=== PATIENT | male | born 1975 | race American Indian/Alaskan Native ===

== ENCOUNTER 2020-04-30 07:22 | Emergency (ER) | payer MEDICAID, OTHER ==
--- NOTE | 2020-04-30 07:30 | EDM.PDOC ---
ED HPI GENERAL MEDICAL PROBLEM - General Chief Complaint: Abdominal Pain Stated Complaint: STOMACH PAIN Time Seen by Provider: 04/30/20 07:29 Source of Information: Reports: Patient, Old Records, RN, RN Notes Reviewed History Limitations: Reports: No Limitations - History of Present Illness INITIAL COMMENTS - FREE TEXT/NARRATIVE: Pt presents to ER from home by POV with c/o epigastric pain for the last two days. He has had gastritis and GERD in the past and states he thinks he also had diagnosis of peptic ulcer disease that his doctor gave him some "stomach acid pills" and they helped. He states the pain has been constant and stayed in the epigastrium for two days, does not radiate to back or anywhere else. He has been nauseated and states he is vomiting but nothing is coming up. He denies any fever, diarrhea, cough, sob, Covid contact or any past Covid testing. Onset: Gradual Duration: Constant Location: Reports: Abdomen Quality: Reports: Burning Severity: Severe Improves with: Reports: None Worsens with: Reports: Eating Associated Symptoms: Reports: No Other Symptoms Upper Abdomen Pain Score (Numeric/FACES): 10 - Related Data Allergies Allergy/AdvReac Type Severity Reaction Status Date / Time No Known Allergies Allergy Verified 04/30/20 07:34 Home Meds: Home Meds Cyclobenzaprine [Flexeril] 5 mg PO Q8H PRN 04/30/20 [History] Gabapentin [Neurontin] 400 mg PO TID 04/30/20 [History] Ibuprofen 400 mg PO Q6H PRN 04/30/20 [History] Past Medical History - Past Health History Medical/Surgical History: Denies Medical/Surgical History Gastrointestinal History: Reports: Gastritis, GERD, PUD - Past Surgical History HEENT Surgical History: Reports: Eye Surgery Social & Family History - Family History Family Medical History: Noncontributory - Caffeine Use Caffeine Use: Reports: Coffee, Energy Drinks, Soda, Tea - Living Situation & Occupation Living situation: Reports: with Family ED ROS GENERAL - Review of Systems Review Of Systems: Comprehensive ROS is negative, except as noted in HPI. ED EXAM, GI/ABD - Physical Exam Exam: See Below Exam Limited By: No Limitations General Appearance: Alert, WD/WN, No Apparent Distress Eyes: Bilateral: Normal Appearance (No scleral icterus) Throat/Mouth: Normal Inspection, Normal Voice, No Airway Compromise Head: Atraumatic, Normocephalic Neck: Normal Inspection, Supple, Non-Tender, Full Range of Motion Respiratory/Chest: No Respiratory Distress, Lungs Clear, Normal Breath Sounds, No Accessory Muscle Use, Chest Non-Tender Cardiovascular: Normal Peripheral Pulses, Regular Rate, Rhythm, No Edema, No Gallop, No JVD, No Murmur, No Rub, Tachycardia GI/Abdominal Exam: Normal Bowel Sounds, Soft, No Organomegaly, No Distention, Tender (Epigastric area). No: Guarding, Rigid, Rebound Back Exam: Normal Inspection Extremities: Normal Inspection Neurological: Alert, Oriented, No Motor/Sensory Deficits Psychiatric: Normal Affect, Normal Mood Skin Exam: Warm, Dry, Intact, Normal Color, No Rash Course - Vital Signs Last Recorded V/S: Last Vital Signs Temp 97.7 F 04/30/20 07:31 Pulse 102 H 04/30/20 07:31 Resp 16 04/30/20 07:31 BP 127/96 H 04/30/20 07:31 Pulse Ox 100 04/30/20 07:31 - Orders/Labs/Meds Orders: Active Orders 24 hr Category Date Time Status Sucralfate [Carafate] Med 04/30/20 08:16 Once 1 gm PO ONETIME ONE Labs: Laboratory Tests 04/30/20 04/30/20 Range/Units 07:48 07:48 WBC 12.2 H (5.0-10.0) 10^3/uL RBC 4.64 (4.6-6.2) 10^6/uL Hgb 14.6 (14.0-18.0) g/dL Hct 43.0 (40.0-54.0) % MCV 92.7 (80-100) fL MCH 31.5 (27.0-34.0) pg MCHC 34.0 (33.0-35.0) g/dL Plt Count 322 (150-450) 10^3/uL Neut % (Auto) 80.9 H (42.2-75.2) % Lymph % (Auto) 10.8 L (20.5-50.1) % Russell % (Auto) 7.6 (2-8) % Eos % (Auto) 0.3 L (1.0-3.0) % Baso % (Auto) 0.4 (0.0-1.0) % Sodium 136 (136-145) mmol/L Potassium 4.6 (3.5-5.1) mmol/L Chloride 99 (98-107) mmol/L Carbon Dioxide 32 (21-32) mmol/L Anion Gap 9.6 (7-13) mEq/L BUN 5 L (7-18) mg/dL Creatinine 0.91 (0.70-1.30) mg/dL Est Cr Clr Drug Dosing 84.31 mL/min Estimated GFR (MDRD) > 60 BUN/Creatinine Ratio 5.5 (No establ ref range) Glucose 109 H (74-99) mg/dL Calcium 8.8 (8.5-10.1) mg/dL Total Bilirubin 0.6 (0.2-1.0) mg/dL AST 12 L (15-37) U/L ALT 14 L (16-63) U/L Alkaline Phosphatase 94 (46-116) U/L Total Protein 7.6 (6.4-8.2) g/dL Albumin 3.4 (3.4-5.0) g/dL Globulin 4.2 Albumin/Globulin Ratio 0.8 Amylase 36 (25-115) U/L Lipase 89 (73-393) U/L Meds: Medications Discontinued Medications Generic Name Dose Route Start Last Admin Trade Name Freq PRN Reason Stop Dose Admin Al Hydroxide/Mg Hydroxide 30 ml 04/30/20 07:33 04/30/20 07:39 Gi Cocktail PO 04/30/20 07:34 30 ml ONETIME ONE Administration Ondansetron HCl 4 mg 04/30/20 07:33 04/30/20 07:39 Zofran Odt PO 04/30/20 07:34 4 mg ONETIME ONE Administration Departure - Departure Time of Disposition: 08:17 Disposition: Home, Self-Care 01 Condition: Good Clinical Impression: Gastritis Qualifiers: Gastritis type: unspecified gastritis Chronicity: acute Gastritis bleeding: without bleeding Qualified Code(s): K29.00 - Acute gastritis without bleeding GERD (gastroesophageal reflux disease) Qualifiers: Esophagitis presence: esophagitis presence not specified Qualified Code(s): K21.9 - Gastro-esophageal reflux disease without esophagitis - Discharge Information *PRESCRIPTION DRUG MONITORING PROGRAM REVIEWED*: No *COPY OF PRESCRIPTION DRUG MONITORING REPORT IN PATIENT GEOFFREY: No Instructions: Gastritis, Adult, [id number], Gastroesophageal Reflux Disease, Adult, [id number], Food Choices for Gastroesophageal Reflux Disease, Adult Forms: ED Department Discharge Additional Instructions: Rx: Zofran 4mg Rx: Omeprazole 20mg Rx: Carafate 1g Follow up in clinic in 1 week for recheck. Have your doctor consider referring you to a GI specialist of an endoscopy if your symptoms do not improve as expected. Sepsis Event Note - Focused Exam Vital Signs: Vital Signs Temp Pulse Resp BP Pulse Ox 04/30/20 07:31 97.7 F 102 H 16 127/96 H 100 Date Exam was Performed: 04/30/20 Time Exam was Performed: 08:17 - My Orders Last 24 Hours: My Active Orders 04/30/20 08:16 Sucralfate [Carafate] 1 gm PO ONETIME ONE - Assessment/Plan Last 24 Hours: My Active Orders 04/30/20 08:16 Sucralfate [Carafate] 1 gm PO ONETIME ONE
[2020-04-30] MEDS ORDERED: Ondansetron 4 MG Tab.DIS PO ONE (07:33)
[2020-04-30] MEDS ORDERED: GI Cocktail Oral Solution 30 ML PO ONE (07:33)
[2020-04-30 07:34] VITALS: BP 127/96; PULSE 102
[2020-04-30 08:12] LABS: ANION GAP 9.6 mEq/L (7-13); CHLORIDE,CL 99 mmol/L (98-107); SODIUM,NA 136 mmol/L (136-145)
[2020-04-30] MEDS ORDERED: Sucralfate 1 GM Tab PO ONE (08:16)
== END 2020-04-30 08:31 | disposition home or self-care (01) ==
LOC: DL.ED 07:22
DX: K29.00 Acute gastritis without bleeding (principal); K21.9 Gastro-esophageal reflux disease without esophagitis; Z79.899 Other long term (current) drug therapy
CPT/HCPCS: 36415; 80053; 82150; 83690; 85025; 99284; A9270

== ENCOUNTER 2022-05-19 19:29 | Emergency (ER) | payer MEDICAID ==
[2022-05-19 19:42] VITALS: BP 158/139; PULSE 94
== END 2022-05-19 19:38 ==
LOC: DL.ED 19:29
DX: F10.10 Alcohol abuse, uncomplicated (principal)
CPT/HCPCS: 99283

== ENCOUNTER 2024-08-27 20:43 | Emergency (ER) | payer MEDICAID ==
[2024-08-27] MEDS ORDERED: Sodium Chloride 0.9% 10 ML Syringe FLUSH PRN (20:53)
[2024-08-27] MEDS: Sodium Chloride 0.9% 1,000 ML IV ONE ×2 (21:04→21:44)
[2024-08-27] MEDS ORDERED: Lidocaine 2% with EPINEPHrine 1:200,000 20 ML SDV INJECT ONE (21:08)
[2024-08-27 21:11] LABS: HEMATOCRIT 43.2 % (40.0-54.0); MEAN CORPUSCULAR HEMOGLOBIN 30.6 pg (27.0-34.0); MEAN CORPUSCULAR HGB CONC 32.4 g/dL (33.0-35.0); MEAN CORPUSCULAR VOLUME 94.3 fL (80-100); PLATELET COUNT,PLT 300 10^3/uL (150-450); RED BLOOD CELL COUNT 4.58 10^6/uL (4.6-6.2); WHITE BLOOD CELL COUNT,WBC 30.2 10^3/uL (5.0-10.0)
[2024-08-27 21:16] LABS: BASOPHILS PERCENT AUTO 0.1 % (0.0-1.0); LYMPHOCYTES PERCENT AUTO 4.6 % (20.5-50.1); MONOCYTES PERCENT AUTO 8.3 % (2-8)
[2024-08-27] MEDS: Piperacillin/Tazobactam 4.5 GM in Sodium Chloride 0.9% 100 ML IV ONE (21:17)
[2024-08-27] MEDS: LORazepam 2 MG/ML SDV IVPUSH ONE ×3 (21:20→23:11)
[2024-08-27] MEDS: Diphtheria,Pertussis(Acell),Tetanus Vaccine 0.5 ML Syringe IM ONE (21:39)
[2024-08-27 21:46] LABS: ALANINE AMINOTRANSFERASE,ALT 20 U/L (16-63); ALBUMIN 2.9 g/dL (3.4-5.0); ALKALINE PHOSPHATASE 106 U/L (46-116); ANION GAP 14.7 mEq/L (7-13); ASPARTATE AMNIOTRANSFERASE,AST 19 U/L (15-37); BILIRUBIN TOTAL 1.7 mg/dL (0.2-1.0); BLOOD UREA NITROGEN,BUN 12 mg/dL (7-18); CALCIUM 8.6 mg/dL (8.5-10.1); CARBON DIOXIDE,CO2 25 mmol/L (21-32); CHLORIDE,CL 98 mmol/L (98-107); CREATININE 1.09 mg/dL (0.70-1.30); EST CRCL DRUG DOSING (CG) 70.48 mL/min; GLUCOSE RANDOM 130 mg/dL (70-99); POTASSIUM,K 3.7 mmol/L (3.5-5.1); PROTEIN TOTAL,TP 8.1 g/dL (6.4-8.2); SODIUM,NA 134 mmol/L (136-145)
[2024-08-27 21:54] LABS: A/G RATIO 0.56; ESTIMATED GFR 83 mL/min (>=60); LACTIC ACID 2.4 mmol/L (0.4-2.0)
[2024-08-27] MEDS: OLANZapine 10 MG Vial IM ONE (21:54)
[2024-08-27 21:55] LABS: ETHANOL BLOOD MEDICAL 345 mg/dL (0)
[2024-08-27 22:01] LABS: BAND PERCENT MAN 2 %; LYMPHOCYTES PERCENT MAN 3 % (20-50); MONOCYTES PERCENT MAN 9 % (2-8); SEG NEUTROPHILS PERCENT MAN 86 % (42-75)
[2024-08-27] MEDS: Iopamidol 612 MG/ML 100 ML Bottle IVPUSH ONE (22:01)
[2024-08-27 22:05] LABS: C-REACTIVE PROTEIN > 25.00 ng/dL (<=0.50)
[2024-08-27 22:36] LABS: O2 DELIVERY DEVICE NASAL CANNULA
[2024-08-27 22:38] LABS: PCO2 VENOUS 35 mmHg (41-51); PH,VENOUS 7.35 (7.31-7.41)
[2024-08-27 22:39] LABS: BASE EXCESS VENOUS -5.4 mmol/l ((-2)-(+3)); BICARBONATE,VENOUS 19 mmol/l (19-25); O2 SATURATION VENOUS 99.3 % (60-80); PO2 VENOUS 177 mmHg (35-42)
[2024-08-27 22:52] VITALS: BP 91/55; PULSE 111
[2024-08-27] MEDS: LORazepam 2 MG/ML SDV ONE (23:30)
[2024-08-27] MEDS ORDERED: Ketamine 500 MG in Sodium Chloride 0.9% 500 ML IV ONE (23:38)
[2024-08-27] MEDS ORDERED: Benzocaine 20% Topical Spray UD MUCMEM ONE (23:39)
[2024-08-27] MEDS: Etomidate 2 MG/ML 10 ML SDV IVPUSH ONE (23:39)
[2024-08-27] MEDS: Rocuronium 100 MG/10 ML MDV IVPUSH ONE (23:40)
== END 2024-08-28 ==
LOC: DL.ED 20:43
DX: A41.9 Sepsis, unspecified organism (principal); L03.114 Cellulitis of left upper limb; Z23 Encounter for immunization; Z79.899 Other long term (current) drug therapy
CPT/HCPCS: 31500; 36415; 43752; 51702; 71045; 73201; 80053; 80307; 82803; 83605; 83735; 84145; 85025; 86140; 87040; 90471; 90715; 96365; 96372; 96375; 96376; 99285-25; J2060; J2405; J2543; J3370; J3490; J7030; J7050; Q9967

== ENCOUNTER 2024-12-28 02:06 | Emergency (ER) | payer SELFPAY ==
[2024-12-28] MEDS: Ibuprofen 600 MG Tab PO ONE (02:31)
[2024-12-28] MEDS: Clindamycin HCl 150 MG Cap PO ONE (02:31)
[2024-12-28 02:39] LABS: BASOPHILS PERCENT AUTO 0.7 % (0.0-1.0); EOSINOPHILS PERCENT AUTO 0.9 % (1.0-3.0); HEMATOCRIT 36.8 % (40.0-54.0); HEMOGLOBIN 11.6 g/dL (14.0-18.0); LYMPHOCYTES PERCENT AUTO 24.9 % (20.5-50.1); MEAN CORPUSCULAR HEMOGLOBIN 26.4 pg (27.0-34.0); MEAN CORPUSCULAR HGB CONC 31.5 g/dL (33.0-35.0); MEAN CORPUSCULAR VOLUME 83.6 fL (80-100); MONOCYTES PERCENT AUTO 10.1 % (2-8); NEUTROPHILS PERCENT AUTO 63.4 % (42.2-75.2); PLATELET COUNT,PLT 317 10^3/uL (150-450); WHITE BLOOD CELL COUNT,WBC 5.6 10^3/uL (5.0-10.0)
[2024-12-28 02:59] LABS: A/G RATIO 0.52; ALBUMIN 2.9 g/dL (3.4-5.0); ANION GAP 13.6 mEq/L (7-13); BILIRUBIN TOTAL 0.3 mg/dL (0.2-1.0); BUN/CREATININE RATIO 26.5 (No establ ref range); CALCIUM 8.4 mg/dL (8.5-10.1); CREATININE 0.83 mg/dL (0.70-1.30); EST CRCL DRUG DOSING (CG) 90.48 mL/min; POTASSIUM,K 4.6 mmol/L (3.5-5.1); PROTEIN TOTAL,TP 8.5 g/dL (6.4-8.2)
[2024-12-28 03:02] LABS: LACTIC ACID 1.5 mmol/L (0.4-2.0)
[2024-12-28] MEDS: Take Home: Clindamycin HCl 150 MG, 12 Cap Pack PO ONE (03:13)
[2024-12-28 03:19] VITALS: BP 145/80; PULSE 104
== END 2024-12-28 03:18 | disposition home or self-care (01) ==
LOC: DL.ED 02:06
DX: L03.114 Cellulitis of left upper limb (principal); L02.414 Cutaneous abscess of left upper limb
CPT/HCPCS: 36415; 73070; 80053; 83605; 85025; 87040; 87070; 87077; 87186; 99283; A9270; 99284

== ENCOUNTER 2025-05-30 22:13 | Emergency (ER) | payer SELFPAY ==
[2025-05-30 22:34] LABS: HEMATOCRIT 38.5 % (40.0-54.0); HEMOGLOBIN 12.5 g/dL (14.0-18.0); MEAN CORPUSCULAR HEMOGLOBIN 27.5 pg (27.0-34.0); MEAN CORPUSCULAR HGB CONC 32.5 g/dL (33.0-35.0); MEAN CORPUSCULAR VOLUME 84.6 fL (80-100); PLATELET COUNT,PLT 282 10^3/uL (150-450); RED BLOOD CELL COUNT 4.55 10^6/uL (4.6-6.2)
[2025-05-30 22:39] LABS: BASOPHILS PERCENT AUTO 0.3 % (0.0-1.0); EOSINOPHILS PERCENT AUTO 0.2 % (1.0-3.0); LYMPHOCYTES PERCENT AUTO 16.6 % (20.5-50.1); MONOCYTES PERCENT AUTO 7.6 % (2-8); NEUTROPHILS PERCENT AUTO 75.3 % (42.2-75.2)
[2025-05-30 22:55] LABS: LYMPHOCYTES PERCENT MAN 18 % (20-50); MONOCYTES PERCENT MAN 6 % (2-8); SEG NEUTROPHILS PERCENT MAN 76 % (42-75)
[2025-05-30 22:59] LABS: A/G RATIO 0.56; ALANINE AMINOTRANSFERASE,ALT 24 U/L (16-63); ALKALINE PHOSPHATASE 123 U/L (46-116); ANION GAP 12.1 mEq/L (7-13); ASPARTATE AMNIOTRANSFERASE,AST 26 U/L (15-37); BILIRUBIN TOTAL 1.2 mg/dL (0.2-1.0); BLOOD UREA NITROGEN,BUN 8 mg/dL (7-18); BUN/CREATININE RATIO 9.9 (No establ ref range); CARBON DIOXIDE,CO2 29 mmol/L (21-32); CHLORIDE,CL 104 mmol/L (98-107); CREATININE 0.81 mg/dL (0.70-1.30); ESTIMATED GFR 107 mL/min (>=60); GLUCOSE RANDOM 136 mg/dL (70-99); POTASSIUM,K 3.1 mmol/L (3.5-5.1); PROTEIN TOTAL,TP 8.4 g/dL (6.4-8.2); SODIUM,NA 142 mmol/L (136-145)
[2025-05-30 23:00] LABS: ETHANOL BLOOD MEDICAL 407 mg/dL (0)
[2025-05-30] MEDS: Doxycycline Monohydrate 100 MG Cap PO ONE (23:27)
[2025-05-30] MEDS: Potassium Chloride 10 MEQ Tab.ER PO ONE (23:27)
[2025-05-30] MEDS: MVI, Adult with Vitamin K 10 ML, Folic Acid 1 MG, Thiamine 100 MG in Lactated Ringers 1... IV ONE (23:27)
[2025-05-31] MEDS ORDERED: Bacitracin/Neomycin/Polymyxin B Oint 28.4 GM Tube ONE (02:25)
[2025-05-31] MEDS: Bacitracin/Neomycin/Polymyxin B Oint 28.4 GM Tube TOP PRN (02:30)
[2025-05-31 02:46] VITALS: BP 148/92; PULSE 89
== END 2025-05-31 02:45 | disposition home or self-care (01) ==
LOC: DL.ED 22:13
DX: F10.221 Alcohol dependence with intoxication delirium (principal); L03.114 Cellulitis of left upper limb; E87.6 Hypokalemia; L98.499 Non-pressure chronic ulcer of skin of other sites with unspecified severity; F17.210 Nicotine dependence, cigarettes, uncomplicated; Y90.8 Blood alcohol level of 240 mg/100 ml or more
CPT/HCPCS: 36415; 80053; 80307; 85025; 96365; 99284; 99284-25; A4320; A9270-GY; J3411; J3490; J7120

== ENCOUNTER 2025-07-10 03:01 | Emergency (ER) | payer SELFPAY ==
[2025-07-10] MEDS ORDERED: Sodium Chloride 0.9% 10 ML Syringe FLUSH PRN (03:37)
[2025-07-10 03:57] LABS: PLATELET COUNT,PLT 150 10^3/uL (150-450); RED BLOOD CELL COUNT 3.77 10^6/uL (4.6-6.2); WHITE BLOOD CELL COUNT,WBC 5.8 10^3/uL (5.0-10.0)
[2025-07-10 03:58] LABS: BASOPHILS PERCENT AUTO 0.7 % (0.0-1.0); EOSINOPHILS PERCENT AUTO 2.6 % (1.0-3.0); LYMPHOCYTES PERCENT AUTO 30.3 % (20.5-50.1); MONOCYTES PERCENT AUTO 9.7 % (2-8); NEUTROPHILS PERCENT AUTO 56.7 % (42.2-75.2)
[2025-07-10 04:11] LABS: AMPHETAMINES,URINE NEGATIVE (NEGATIVE); BARBITURATES,URINE NEGATIVE (NEGATIVE); MDMA (ECSTASY), URINE NEGATIVE (NEGATIVE); METHAMPHETAMINES,URINE NEGATIVE (NEGATIVE); OPIATES,URINE NEGATIVE (NEGATIVE); OXYCODONE,URINE NEGATIVE (NEGATIVE); PHENCYCLIDINE,URINE NEGATIVE (NEGATIVE); TCA,URINE NEGATIVE (NEGATIVE)
[2025-07-10 04:14] LABS: ALANINE AMINOTRANSFERASE,ALT 39 U/L (16-63); ASPARTATE AMNIOTRANSFERASE,AST 63 U/L (15-37); BILIRUBIN TOTAL 0.4 mg/dL (0.2-1.0); BLOOD UREA NITROGEN,BUN 12 mg/dL (7-18); CARBON DIOXIDE,CO2 29 mmol/L (21-32); CHLORIDE,CL 106 mmol/L (98-107); CREATININE 0.71 mg/dL (0.70-1.30); GLUCOSE RANDOM 114 mg/dL (70-99); POTASSIUM,K 4.1 mmol/L (3.5-5.1); PROTEIN TOTAL,TP 8.1 g/dL (6.4-8.2); SODIUM,NA 143 mmol/L (136-145)
[2025-07-10 04:17] LABS: A/G RATIO 0.56; ESTIMATED GFR 112 mL/min (>=60); ETHANOL BLOOD MEDICAL 381 mg/dL (0)
[2025-07-10 04:29] LABS: BAND PERCENT MAN 2 %; EOSINOPHILS PERCENT MAN 3 % (1-3); LYMPHOCYTES PERCENT MAN 31 % (20-50); MONOCYTES PERCENT MAN 5 % (2-8); SEG NEUTROPHILS PERCENT MAN 59 % (42-75)
[2025-07-10 04:30] LABS: LACTIC ACID 1.5 mmol/L (0.4-2.0)
[2025-07-10 05:24] VITALS: BP 142/74; PULSE 94
== END 2025-07-10 05:55 | disposition home or self-care (01) ==
LOC: DL.ED 03:01
DX: S00.03XA Contusion of scalp, initial encounter (principal); S51.001D Unspecified open wound of right elbow, subsequent encounter; F10.120 Alcohol abuse with intoxication, uncomplicated; F12.90 Cannabis use, unspecified, uncomplicated; E83.42 Hypomagnesemia; W01.198A Fall on same level from slipping, tripping and stumbling with subsequent striking against other object, initial encounter
CPT/HCPCS: 36415; 70450; 80053; 80305; 80307; 83605; 83735; 85025; 86140; 87040; 87070; 87077; 87186; 99284; A9270

== ENCOUNTER 2025-10-19 17:39 | Emergency (ER) | payer SELFPAY ==
[2025-10-19] MEDS ORDERED: Sodium Chloride 0.9% 10 ML Syringe FLUSH PRN (18:09)
[2025-10-19 18:26] LABS: BASOPHILS PERCENT AUTO 1.1 % (0.0-1.0); EOSINOPHILS PERCENT AUTO 0.5 % (1.0-3.0); LYMPHOCYTES PERCENT AUTO 16.7 % (20.5-50.1); MONOCYTES PERCENT AUTO 14.4 % (2-8); NEUTROPHILS PERCENT AUTO 67.3 % (42.2-75.2); PLATELET COUNT,PLT 157 10^3/uL (150-450); RED BLOOD CELL COUNT 4.02 10^6/uL (4.6-6.2); WHITE BLOOD CELL COUNT,WBC 5.6 10^3/uL (5.0-10.0)
[2025-10-19 18:39] LABS: AMPHETAMINES,URINE NEGATIVE (NEGATIVE); BARBITURATES,URINE NEGATIVE (NEGATIVE); MDMA (ECSTASY), URINE NEGATIVE (NEGATIVE); OPIATES,URINE NEGATIVE (NEGATIVE); OXYCODONE,URINE NEGATIVE (NEGATIVE); PHENCYCLIDINE,URINE NEGATIVE (NEGATIVE); TCA,URINE NEGATIVE (NEGATIVE)
[2025-10-19 18:40] LABS: METHAMPHETAMINES,URINE NEGATIVE (NEGATIVE)
[2025-10-19 18:41] LABS: INR 0.9 (0.9-1.2); PTT,PARTIAL THROMBOPLSTIN TIME 24.7 SEC (22.0-34.0)
[2025-10-19 18:43] LABS: ALANINE AMINOTRANSFERASE,ALT 75 U/L (16-63); ASPARTATE AMNIOTRANSFERASE,AST 93 U/L (15-37); BILIRUBIN TOTAL 0.5 mg/dL (0.2-1.0); BLOOD UREA NITROGEN,BUN 16 mg/dL (7-18); CARBON DIOXIDE,CO2 30 mmol/L (21-32); CHLORIDE,CL 101 mmol/L (98-107); CREATININE 0.58 mg/dL (0.70-1.30); EST CRCL DRUG DOSING (CG) 126.30 mL/min; ETHANOL BLOOD MEDICAL 108 mg/dL (0); GLUCOSE RANDOM 100 mg/dL (70-99); POTASSIUM,K 3.2 mmol/L (3.5-5.1); PROTEIN TOTAL,TP 7.9 g/dL (6.4-8.2); SODIUM,NA 141 mmol/L (136-145)
[2025-10-19 18:44] LABS: A/G RATIO 0.68; ESTIMATED GFR 119 mL/min (>=60)
[2025-10-19 18:48] LABS: LACTIC ACID 1.6 mmol/L (0.4-2.0)
[2025-10-19] MEDS: Iopamidol 612 MG/ML 100 ML Bottle IVPUSH ONE (19:18)
[2025-10-19] MEDS: Potassium Chloride 10 MEQ Tab.ER PO ONE (21:55)
[2025-10-19] MEDS: Ketorolac 30 MG/ML SDV IVPUSH ONE (22:04)
[2025-10-19 22:20] VITALS: BP 139/80; PULSE 98
== END 2025-10-19 22:17 | disposition home or self-care (01) ==
LOC: DL.ED 17:39
DX: S51.002A Unspecified open wound of left elbow, initial encounter (principal); X58.XXXA Exposure to other specified factors, initial encounter
CPT/HCPCS: 36415; 73201-LT; 80053; 80305-QW; 80307; 83605; 84145; 85025; 85610; 85651; 85730; 86140; 87040; 87070; 87077; 87186; 96374; 99283-25; A9270-GY; J1885; Q9967